=== PATIENT | male | born 1965 | race Caucasian/White ===

== ENCOUNTER 2022-04-12 17:31 | Emergency (ER) | payer OTHER ==
[2022-04-12 17:52] VITALS: RESP 18; TEMP 97
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
[2022-04-12] MEDS ORDERED: LIDOCAINE 1% INJ 10MG/ML (30 ML VIAL-PF) SQ ONE (18:11)
[2022-04-12] MEDS ORDERED: HYDROmorphone 1 MG/ML 1 ML SYRINGE IM STA (18:11)
--- NOTE | 2022-04-12 18:41 | XR ---
EXAMINATION TYPE: XR wrist complete RT DATE OF EXAM: 04/12/2022 COMPARISON: NONE HISTORY: Pain TECHNIQUE: 4 views FINDINGS: There is no sign of fracture nor dislocation. Joint spaces are normal. No evidence of a for eign body. Carpal bones are intact. IMPRESSION: No acute bony abnormality.
[2022-04-12] MEDS ORDERED: ONDANSETRON ODT 4 MG TAB PO STA (18:45)
[2022-04-12] MEDS ORDERED: BACITRACIN OINT 1 EACH PACKET TOPICAL ONE (19:01)
[2022-04-12 19:45] VITALS: BP 132/88; PULSE 96
== END 2022-04-12 19:45 | disposition home or self-care (01) ==
LOC: EC 17:31
DX: S61.411A Laceration without foreign body of right hand, initial encounter (principal); I10 Essential (primary) hypertension; E11.9 Type 2 diabetes mellitus without complications; I25.2 Old myocardial infarction; Z87.891 Personal history of nicotine dependence; Z88.5 Allergy status to narcotic agent; V89.2XXA Person injured in unspecified motor-vehicle accident, traffic, initial encounter
CPT/HCPCS: 99284; 96372; 12002; 73110; J2001; J1170